=== PATIENT | female | born 1945 | race Caucasian/White ===

== ENCOUNTER 2017-04-05 12:13 | Emergency (ER) | payer MEDICARE ==
[~2017-04-05] VITALS: Ht 160 cm; Wt 90.9 kg
[2017-04-05] MEDS ORDERED: VITA500079 PO (12:28)
[2017-04-05] MEDS ORDERED: HYDR12.55 (12:28)
[2017-04-05] MEDS ORDERED: ASPI81TA85 PO (12:28)
[2017-04-05] MEDS ORDERED: MAGN200T PO (12:28)
[2017-04-05 12:53] LABS: BASO % 0.4 % (0.0-1.0); EOS # 0.2 K/mm3 (0.0-0.50); EOS % 2.9 % (0.0-3.0); LARGE UNSTAINED CELL # 0.1 K/mm3 (0.0-0.4); LARGE UNSTAINED CELL % 1.5 % (0.0-4.0); LYMPH % 24.7 % (24.0-44.0); MEAN CORPUSCULAR HEMOGLOBIN 30.6 pg (27.0-33.0); MEAN CORPUSCULAR HGB CONC 35.5 g/dl (32.0-36.5); MONO # 0.4 K/mm3 (0.0-0.8); MONO % 4.9 % (0.0-5.0); NEUTROPHILS # 5.2 K/mm3 (1.8-7.7); NEUTROPHILS % 65.6 % (36.0-66.0); PLATELET COUNT, AUTOMATED 295 k/mm3 (150-450); RED CELL DISTRIBUTION WIDTH 12.8 % (11.5-14.5)
[2017-04-05 13:17] LABS: ANION GAP 9 MEQ/L (8-16); BLOOD UREA NITROGEN 10 MG/DL (7-18); CALCIUM LEVEL 8.7 MG/DL (8.8-10.2); CARBON DIOXIDE LEVEL 26 MEQ/L (21-32); CHLORIDE LEVEL 108 MEQ/L (98-107); CREATININE FOR GFR 0.58 MG/DL (0.55-1.02); GLOMERULAR FILTRATION RATE > 60.0 (>39); GLUCOSE, FASTING 95 MG/DL (83-110); POTASSIUM SERUM 3.9 MEQ/L (3.5-5.1); SODIUM LEVEL 143 MEQ/L (136-145)
[2017-04-05 13:24] LABS: THYROXINE (T4) 9.9 UG/DL (4.5-12.0)
[2017-04-05] MEDS ORDERED: oxyCODONE 5MG TAB PO ONE (14:00)
[2017-04-05] MEDS ORDERED: methylPREDNISolone INJ 125 MG/2 ML VIAL (J2930) IV STA (14:03)
[2017-04-05] MEDS ORDERED: diphenhydrAMINE INJ 50MG/ML VIAL (J1200) IV ONE (14:15)
[2017-04-05] MEDS ORDERED: ISOVUE-370 76% 100ML VIAL (Q9967) As Ordered ONE (15:16)
[2017-04-05 16:43] VITALS: BP 165/93
--- NOTE | 2017-04-06 06:35 | REP ---
CT ANGIOGRAM OF THE CHEST: TECHNIQUE: Axial contrast enhanced images from the thoracic inlet to the upper abdomen using 100 mL Isovue 370 intravenous contrast material with multiplanar reformations. There is no CT evidence of a pulmonary embolism. There is no thoracic aortic aneurysm or dissection. No mediastinal or hilar adenopathy is seen. Heart is not enlarged. There is no pleural or pericardial effusion. Hazy ground glass opacities are scattered throughout both lower lobes which may represent atelectasis, fibrosis or pneumonitis. The visualized upper abdominal structures demonstrate a nodule of the left adrenal gland 2.3 cm in diameter possibly representing an adenoma. There are degenerative changes of the spine. IMPRESSION: No CT evidence of pulmonary embolism. Hazy ground glass opacities in the lower lobes bilaterally may represent atelectasis, fibrosis or pneumonitis. Left adrenal nodule may represent an adenoma. This could be further evaluated with dedicated adrenal CT or MRI. Signed by Hector Sorto MD 04/06/2017 05:24 P
--- NOTE | 2017-04-06 08:29 | ECGEPIP ---
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
--- NOTE | 2017-04-06 13:35 | REP ---
CHEST, TWO VIEWS: COMPARISON: 12/11/2010. There is no evidence of acute infiltrate. No pleural effusion is seen. The heart is normal in size. The mediastinal silhouette is unremarkable. The visualized osseous structures are intact. IMPRESSION: No acute pulmonary disease. Signed by Hector Sorto MD 04/07/2017 05:12 P
== END 2017-04-05 17:00 | disposition home or self-care (01) ==
LOC: M ED 12:13
DX: R07.89 Other chest pain (principal); Z82.49 Family history of ischemic heart disease and other diseases of the circulatory system; Z79.82 Long term (current) use of aspirin; Z88.8 Allergy status to other drugs, medicaments and biological substances; Z91.013 Allergy to seafood; J30.1 Allergic rhinitis due to pollen; J30.89 Other allergic rhinitis; Z79.899 Other long term (current) drug therapy
CPT/HCPCS: 71020; 71275; 80048; 82550; 82553; 83880; 84436; 84443; 84479; 84484; 85025; 85379; 93005; 93041; 94760; 96374; 96375; 99285; J1200; J2930; Q9967